=== PATIENT | female | born 1985 | race African-American/Black ===

== ENCOUNTER 2017-06-26 20:41 | Emergency (ER) | payer OTHER ==
[2017-06-26] MEDS ORDERED: HYDROcod/ACETAM 5/325 MG TABLET PO STA (22:13)
[2017-06-26] MEDS ORDERED: CETIRIZINE 10 MG TABLET PO STA (22:13)
[2017-06-26] MEDS ORDERED: predniSONE 20 MG TABLET PO STA (22:13)
--- NOTE | 2017-06-26 22:15 | ED Physician Documentation ---
PD HPI SKIN - Stated complaint Stated Complaint: HIVES/BODY ACHES - Chief complaint Chief Complaint: Wound - History obtained from History obtained from: Patient, Family - History of Present Illness Timing - onset: How many days ago (5) Timing - duration: Days (5) Timing - details: Gradual onset Pain level max: 8 Pain level now: 8 Location: Bodywide Quality / character: Itchy, Painful, Discolored (erythematous), Raised, Swelling. No: Vesicular, Crusted, Draining Improved by: Other (nothing) Worsened by (comment): COMMENT (nothing) Associated symptoms: Myalgias, Joint pain, Headache. No: Facial swelling, Dyspnea, Abd pain, N/V/D, Urinary sx Contributing factors: Exposed to soap / lotion (new laundry soap). No: Exposed to medication, Exposed to food Similar symptoms before: Has not had sx before Recently seen: Not recently seen - Additional information Additional information: has a cousin with lupus. No other autoimmune disease in the family. Review of Systems Constitutional: reports: Myalgias. 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, Other - Present Medications Home Medications: Ambulatory Orders Medication Instructions Recorded Confirmed Hydrocodone/Acetaminophen 1 - 2 each PO Q6H PRN #14 tablet 06/26/17 [Hydrocodon-Acetaminophen 5-325] Methylprednisolone [Medrol] 20 mg PO DAILY 06/26/17 06/26/17 diphenhydrAMINE [Benadryl] 1 - 2 cap PO Q6HR 06/26/17 06/26/17 predniSONE [Deltasone] 10 mg PO [id number] #42 tab 06/26/17 - Allergies Allergies/Adverse Reactions: Allergies Allergy/AdvReac Type Severity Reaction Status Date / Time No Known Drug Allergies Allergy Verified 01/19/18 21:02 - Social History Does the pt smoke?: No Smoking Status: Never smoker Does the pt drink ETOH?: Yes Does the pt have substance abuse?: No - Immunizations Immunizations are current?: Yes PD ED PE NORMAL - Vitals Vital signs reviewed: Yes - General General: Alert and oriented X 3, No acute distress, Well developed/nourished - HEENT HEENT: PERRL, Ears normal, Moist mucous membranes, Pharynx benign - Neck Neck: Supple, no meningeal sign - Cardiac Cardiac: RRR, Strong equal pulses - Respiratory Respiratory: No respiratory distress, Clear bilaterally - Abdomen Abdomen: Soft, Non tender, Non distended - Derm Derm: Warm and dry, Other (Diffuse firm raised areas body wide. These are erythematous. Evidence of itching is present. She says that they have not changed location since her initial eruption several days ago. Medrol does not seem to be changing them. They do yovani.) - Extremities Extremities: No calf tenderness / cord - Neuro Neuro: Alert and oriented X 3 - Psych Psych: Normal mood, Normal affect Results - Vitals Vitals: Vital Signs - 24 hr 06/26/17 06/26/17 20:59 23:09 Temperature 36.5 C 37.2 C Heart Rate 86 92 Respiratory 18 18 Rate Blood Pressure 145/100 H 118/81 H O2 Saturation 100 99 Oxygen O2 Source Room air PD MEDICAL DECISION MAKING - ED course Complexity details: re-evaluated patient, considered differential, d/w patient ED course: Patient is a 32-year-old female who presents to the emergency department with what appear to be urticaria-like lesions, unclear etiology. They are diffuse and body wide. They do not appear to be prominent over the lower legs however. We will increase her steroids and place her on Zyrtec as well. Given Toradol and hydrocodone here for pain with good pain relief. This appears more consistent with autoimmune disease rather than allergic reaction to me. Possible Behcet's, lupus, etc.? Will have her follow-up with her PCP for further testing. Would likely benefit from a dermatology referral as well as biopsy may be needed. Patient is well-appearing, nontoxic and is tolerating p.o. without difficulty. Patient and family counseled regarding signs and symptoms for which I believe and urgent re-evaluation would be necessary. Patient with good understanding of and agreement to plan and is comfortable going home at this time This document was made in part using voice recognition software. While efforts are made to proofread this document, sound alike and grammatical errors may occur. Departure - Departure Disposition: 01 Home, Self Care Clinical Impression: Urticaria Condition: Good Instructions: ED Urticaria Follow-Up: Jamie Sue DO [Primary Care Provider] - Within 1 week Prescriptions: Hydrocodone/Acetaminophen [Hydrocodon-Acetaminophen 5-325] 1 - 2 each PO Q6H PRN #14 tablet PRN Reason: pain predniSONE [Deltasone] 10 mg PO [id number] #42 tab Comments: Stop the methylprednisolone. You need to follow up with your doctor for further testing. This may be an indication of an autoimmune disease such as lupus. You would also likely benefit from a dermatology referral. Do not drink alcohol or drive while on narcotic pain medicine. Note that many narcotic pain relievers also contain tylenol/acetaminophen. Please ensure that your total dose of acetaminophen from all sources does not exceed 3 grams (3000mg) per day. You may constipated on this medication, take a stool softener such as "Colace" twice a day while you are on it. Also recommend a bqqi-[id number] laxative such as senna or MiraLAX any day that you do not have a bowel movement. If you received narcotic pain medication in the emergency department, do not drive or operate machinery for the next 24 hours. Discharge Date/Time: 06/26/17 23:10
[2017-06-26] MEDS ORDERED: KETOROLAC 60 MG/2 ML VIAL IM STA (22:26)
[2017-06-26 23:11] VITALS: BP 118/81
== END 2017-06-26 23:10 | disposition home or self-care (01) ==
LOC: ED 20:41
DX: L50.9 Urticaria, unspecified (principal)
CPT/HCPCS: 96372; 99283; A9270; J7512

== ENCOUNTER 2019-03-03 09:30 | Outpatient (CLI) | payer OTHER ==
[2019-03-03] MEDS ORDERED: GADOBUTROL 10 MMOL/10 ML VIAL ONE (10:43)
[2019-03-03] MEDS ORDERED: GADOBUTROL 10 MMOL/10 ML VIAL IVP ONE (10:51)
--- NOTE | 2019-03-03 11:28 | MRI Report ---
Reason: ARNOLD CHIARI SYNDROME WITHOUT SPINA BIFIDA OR HYD Procedure Date: 03/03/2019 Accession Number: [id number] / [id number] Procedure: MRI - Brain W/WO CPT Code: FULL RESULT: EXAM: MRI BRAIN WITHOUT AND WITH CONTRAST EXAM DATE: 03/03/2019 10:49 AM. CLINICAL HISTORY: History of Arnold-Chiari malformation with decompression in 2014. Increased headaches and some memory difficulty. COMPARISON: None available. TECHNIQUE: Multiplanar, multisequence T1-weighted and fluid-sensitive MR sequences of the brain were performed before and after administration of intravenous contrast. Sequences optimized for routine evaluation. Other: None. IV Contrast: 10 mL Gadavist. FINDINGS: The diffusion-weighted images are normal. There is no evidence of acute or subacute cerebral infarction. There are a few punctate nonspecific T2 hyperintensities of the subcortical white matter of the bilateral frontal lobes. These are most typical of those seen in migraine. Cerebral volume and ventricular size are normal. There are surgical changes of a suboccipital craniectomy for posterior decompression of Chiari I malformation. The tonsils are rounded in appearance rather than being peglike. The visualized portions of the cervical spinal cord are without evidence of syringohydromyelia. The pituitary and sella are normal. The corpus callosum is of normal size and configuration. The T2* sequence is normal. There is no evidence of subacute or chronic hemorrhage. There is normal enhancement within the deep venous sinuses. There is normal enhancement within the brain parenchyma. There is minimal mucosal thickening in the bilateral maxillary sinuses and ethmoid air cells. There is no obstructing pattern of sinus disease. The bilateral parotid spaces exhibit normal signal intensity. IMPRESSION: 1. There is no evidence of acute or subacute cerebral infarction. 2. There are multiple punctate nonspecific T2 hyperintensities of the bilateral subcortical white matter of the frontal lobes. These are most typical of those seen in migraine. 3. There are surgical changes of a suboccipital craniectomy for posterior decompression of Chiari I malformation. The tonsils are rounded in appearance rather than being peglike. There does not appear to be significant narrowing of the craniocervical junction. There is no evidence of syringohydromyelia within the visualized portions of the cervical spinal cord.
== END 2019-03-03 09:31 | disposition home or self-care (01) ==
LOC: DI 09:30
PROVIDERS: ATTEND Nurse Practitioner Family
DX: Q07.00 Arnold-Chiari syndrome without spina bifida or hydrocephalus (principal)
CPT/HCPCS: 70553; A9585

== ENCOUNTER 2019-11-30 19:17 | Emergency (ER) | payer OTHER ==
[2019-11-30] MEDS ORDERED: SODIUM CHLORIDE 0.9% 1,000 ML IV STA (19:50)
[2019-11-30] MEDS ORDERED: KETOROLAC 30 MG/ML VIAL IVP STA (19:50)
[2019-11-30] MEDS ORDERED: MORPHINE 2 MG/ML CARPUJECT IVP STA ×2 (19:52→22:17)
[2019-11-30 20:13] LABS: BASOPHILS % (AUTO) 0.3 %; EOSINOPHILS # (AUTO) 0.1 10^3/uL (0.0-0.7); EOSINOPHILS % (AUTO) 2.1 %; HGB - HEMOGLOBIN 13.6 g/dL (12.0-16.0); LYMPHOCYTES # (AUTO) 2.3 10^3/uL (1.5-3.5); LYMPHOCYTES % (AUTO) 40.2 %; MEAN CORPUSCULAR HEMOGLOBIN 31.3 pg (27.0-31.0); MEAN CORPUSCULAR HGB CONC 33.8 g/dL (32.0-36.0); MEAN CORPUSCULAR VOLUME 92.4 fL (81.0-99.0); MEAN PLATELET VOLUME 10.8 fL (7.9-10.8); MONOCYTES # (AUTO) 0.4 10^3/uL (0.0-1.0); MONOCYTES % (AUTO) 7.3 %; NEUTROPHILS # (AUTO) 2.9 10^3/uL (1.5-6.6); NEUTROPHILS % (AUTO) 49.9 %; PLT - PLATELET COUNT 238 10^3/uL (130-450); RED BLOOD COUNT 4.35 10^6/uL (4.20-5.40); RED CELL DISTRIBUTION WIDTH 13.3 % (12.0-15.0); WHITE BLOOD COUNT 5.8 x10^3/uL (4.8-10.8)
[2019-11-30 20:34] LABS: ALBUMIN/GLOBULIN RATIO 1.3 (1.0-2.2); ALKALINE PHOSPHATASE 58 IU/L (42-121); ALT ALANINE AMINOTRANSFERASE 12 IU/L (10-60); AST ASPARTATE AMINOTRANSFERASE 13 IU/L (10-42); BILIRUBIN,TOTAL 1.4 mg/dL (0.2-1.0); BUN - BLOOD UREA NITROGEN 10 mg/dL (6-20); CALCIUM 8.6 mg/dL (8.5-10.3); CARBON DIOXIDE - CO2 27 mmol/L (21-32); CHLORIDE 104 mmol/L (101-111); CREATININE 0.7 mg/dL (0.4-1.0); GLUCOSE 91 mg/dL (70-100); LIPASE 30 U/L (22-51); SODIUM 138 mmol/L (135-145); TOTAL PROTEIN 7.2 g/dL (6.7-8.2)
[2019-11-30 21:06] LABS: CRP - C-REACTIVE PROTEIN < 1.0 mg/dL (0-1.0); HCG,QUALITATIVE BLOOD NEGATIVE
--- NOTE | 2019-11-30 21:36 | XRAY Report ---
PROCEDURE: Chest 1 View X-Ray INDICATIONS: dyspnea TECHNIQUE: One view of the chest was acquired. COMPARISON: None FINDINGS: Surgical changes and devices: None. Lungs and pleura: No pleural effusions or pneumothorax. Lungs are clear. Mediastinum: Mediastinal contours appear normal. Heart size is normal. Bones and chest wall: No suspicious bony lesions. Overlying soft tissues appear unremarkable. IMPRESSION: No evidence acute pulmonary process. Reviewed by: Hasmukh Alegre MD on 11/30/2019 9:35 PM PDT Approved by: Hasmukh Alegre MD on 11/30/2019 9:35 PM PDT Station ID: [id number]
--- NOTE | 2019-11-30 21:36 | Ultrasound Report ---
PROCEDURE: Pelvic w/Transvag+Doppler Comp INDICATIONS: pelvic pain, R TECHNIQUE: Real-time scanning was performed of the pelvic organs, with image documentation. Additional endovagi nal scanning was necessary due to incomplete visualization of the adnexal and endometrial structures by transabdominal scanning. COMPARISON: None. FINDINGS: Transabdominal scanning: Limited scanning through the kidneys shows no hydronephrosis. No pathologi c free abdominal or pelvic fluid. Endovaginal scanning: Uterus: Uterus is normal in size at 10.2 x 5.7 x 6.2 cm. The endometrium measures 8 mm in combined thickness. An IUD is in satisfactory position. Ovaries: The right ovary measures 5.1 x 3.8 x 4.1 cm. There is a cystic right ovarian lesion measuri ng 4.5 x 3.3 x 4.1 cm, with internal echoes. This may potentially represent an endometrioma or hemorr hagic cyst. The left ovary measures 3.5 x 1.5 x 2.8 cm, and is unremarkable. There are paraovarian varicosities o n the left There is bilateral intraovarian flow. IMPRESSION: 1. Unremarkable uterus with IUD. 2. Complex cystic structure of the right ovary measuring 4.5 x 3.3 x 4.1 cm, possibly representing en dometrioma versus hemorrhagic cyst. 3. Paraovarian varicosities on the left suggests probable left gonadal vein reflux. In the appropriat e clinical setting, this can support a clinical diagnosis of pelvic venous congestion syndrome. Reviewed by: Hasmukh Alegre MD on 11/30/2019 9:34 PM PDT Approved by: Hasmukh Alegre MD on 11/30/2019 9:34 PM PDT Station ID: [id number]
[2019-11-30] MEDS ORDERED: DEXAMETHASONE 10 MG/ML VIAL IVP STA (22:17)
[2019-11-30] MEDS ORDERED: HYDROcod/ACETAM 5/325 MG TABLET PO STA (22:54)
--- NOTE | 2019-11-30 22:56 | ED Physician Documentation ---
PD HPI FEMALE - Stated complaint Stated Complaint: BAXTER,CHEST DISCOMFORT - Chief complaint Chief Complaint: General - History obtained from History obtained from: Patient - History of Present Illness Timing - onset: How many weeks ago (3) Timing - duration: Weeks (3) Timing - details: Gradual onset, Still present (much worse the past 2-3 days), Waxing and waning Associated symptoms: Pelvic pain (right lower abd/pelvic pain intermittent for 3 weeks, then noted to be across low abd and worse on right the past 2-3 days. Feeling of dyspnea and some headache as well, now the past few days.), Vaginal bleeding (mild spotting several days ago), Other (noted some breast tenderness the past couple of weeks). No: Fever, Dysuria Contributing factors: IUD, Sexually active (just her and has not noted dysparunia). 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 denies: Fever, Chills, Myalgias Nose: reports: Congestion. denies: Rhinorrhea / runny nose Throat: denies: Sore throat Cardiac: denies: Chest pain / pressure, Palpitations Respiratory: reports: Dyspnea. denies: Cough, Wheezing GI: reports: Abdominal Pain (RLQ area), Nausea. denies: Abdominal Swelling, Vomiting, Diarrhea : denies: Dysuria, Frequency, Discharge Musculoskeletal: denies: Back pain Neurologic: reports: Generalized weakness, Headache (the past few days, mild). denies: Focal weakness, Numbness PD PAST MEDICAL HISTORY - Past Medical History Past Medical History: Yes Neuro: Other (Chiari Malformation with surgery years ago, some occasional headaches since. 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[employer]: Other - Present Medications Home Medications: Ambulatory Orders Medication Instructions Recorded Confirmed Hydrocodone/Acetaminophen 1 - 2 each PO Q6H PRN #14 tablet 06/26/17 [Hydrocodon-Acetaminophen 5-325] Methylprednisolone [Medrol Dose 20 mg PO DAILY 06/26/17 06/26/17 Pack] diphenhydrAMINE [Benadryl] 1 - 2 cap PO Q6HR 06/26/17 06/26/17 predniSONE [Deltasone] 10 mg PO [id number] #42 tab 06/26/17 Albuterol Sulfate [Albuterol 2 puffs IH QID #1 hfa.aer.ad 11/30/19 Sulfate Hfa] Hydrocodone/Acetaminophen [[place] 1 each PO Q6H PRN #15 tablet 11/30/19 5-325 Tablet] Naproxen 375 mg PO BID #20 tablet 11/30/19 - Allergies Allergies/Adverse Reactions: Allergies Allergy/AdvReac Type Severity Reaction Status Date / Time No Known Drug Allergies Allergy Verified 11/30/19 19:26 - Social History Does the pt smoke?: No Smoking Status: Never smoker Does the pt drink ETOH?: Yes Does the pt have substance abuse?: No - Immunizations Immunizations are current?: Yes - POLST Patient has POLST: No PD ED PE NORMAL - Vitals Vital signs reviewed: Yes - General General: Alert and oriented X 3, Well developed/nourished - HEENT HEENT: Moist mucous membranes, Pharynx benign - Neck Neck: Supple, no meningeal sign, No adenopathy - Cardiac Cardiac: RRR, No murmur - Respiratory Respiratory: No respiratory distress, Clear bilaterally, Other (no chestwall tenderness) - Abdomen Abdomen: Normal bowel sounds, Soft, Non distended, No organomegaly, Other (tender RLQ area and suprapubic with some local guarding but no percussion nor rebound tenderness. ) - Back Back: No CVA TTP - Derm Derm: Normal color, Warm and dry - Neuro Neuro: Alert and oriented X 3, No motor deficit, Normal speech Results - Vitals Vitals: Vital Signs - 24 hr 11/30/19 11/30/19 11/30/19 19:20 19:33 21:23 Temperature 36.9 C Heart Rate 82 74 70 Respiratory 18 17 16 Rate Blood Pressure 161/113 H 149/94 H O2 Saturation 99 100 98 11/30/19 23:00 Temperature Heart Rate 74 Respiratory 14 Rate Blood Pressure 147/97 H O2 Saturation 99 Oxygen O2 Source Room air - EKG (time done) 20:03 Rate: Rate (enter#) (55) Rhythm: Sinus bradycardia [place]: Normal Intervals: Normal MS QRS: Normal Ischemia: Normal ST segments, ST elevation c/w repol. No: ST elevation c/w ischemia, ST depression - Labs Labs: Laboratory Tests 11/30/19 11/30/19 11/30/19 20:00 20:00 20:00 WBC 5.8 RBC 4.35 Hgb 13.6 Hct 40.2 MCV 92.4 MCH 31.3 H MCHC 33.8 RDW 13.3 Plt Count 238 MPV 10.8 Neut # (Auto) 2.9 Lymph # (Auto) 2.3 [place] # (Auto) 0.4 Eos # (Auto) 0.1 Baso # (Auto) 0.0 Absolute Nucleated RBC 0.00 Nucleated RBC % 0.0 Sodium 138 Potassium 3.6 Chloride 104 Carbon Dioxide 27 Anion Gap 7.0 BUN 10 Creatinine 0.7 Estimated GFR (MDRD) 118 Glucose 91 Calcium 8.6 Total Bilirubin 1.4 H AST 13 ALT 12 Alkaline Phosphatase 58 Troponin I High Sens C-Reactive Protein < 1.0 Total Protein 7.2 Albumin 4.0 Globulin 3.2 Albumin/Globulin Ratio 1.3 Lipase 30 Serum HCG, Qual NEGATIVE 11/30/19 20:00 WBC RBC Hgb Hct MCV MCH MCHC RDW Plt Count MPV Neut # (Auto) Lymph # (Auto) [place] # (Auto) Eos # (Auto) Baso # (Auto) Absolute Nucleated RBC Nucleated RBC % Sodium Potassium Chloride Carbon Dioxide Anion Gap BUN Creatinine Estimated GFR (MDRD) Glucose Calcium Total Bilirubin AST ALT Alkaline Phosphatase Troponin I High Sens < 2.3 L C-Reactive Protein Total Protein Albumin Globulin Albumin/Globulin Ratio Lipase Serum HCG, Qual - Rads (name of study) chest xray Radiology: Prelim report reviewed (no acute process), See rad report pelvic U/S Radiology: Prelim report reviewed (right ovarian complex cyst 4.5 cm c/w hemorrhagic cyst. No free fluid. ), See rad report Departure - Departure Disposition: 01 Home, Self Care Clinical Impression: Lower abdominal pain, Hemorrhagic cyst of right ovary Headache Qualifiers: Headache type: unspecified Headache chronicity pattern: acute headache Intractability: not intractable Qualified Code(s): R51 - Headache Dyspnea Qualifiers: Dyspnea type: shortness of breath Qualified Code(s): R06.02 - Shortness of breath Condition: Stable Record reviewed to determine appropriate education?: Yes Instructions: ED Dyspnea Shortness of Breath, ED Cyst Ovarian Follow-Up: LUCIANO WARD ARNP [Primary Care Provider] - Prescriptions: Albuterol Sulfate [Albuterol Sulfate Hfa] 2 puffs IH QID #1 hfa.aer.ad Naproxen 375 mg PO BID #20 tablet Hydrocodone/Acetaminophen [[place] 5-325 Tablet] 1 each PO Q6H PRN #15 tablet PRN Reason: Pain Comments: Your ultrasound shows a cyst in the right ovary which looks like a hemorrhagic cyst meaning that it bled into the cyst and likely accounts for the increased pain. There is no signs of rupturing of the cyst nor internal bleeding. I think this is accounting for your pain and we can treated with anti- inflammatories and pain medicine. 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 If this is improving well then they may just want to repeat the ultrasound in a few weeks to see if it is cleared. Your chest x-ray and blood tests are normal and not showing any obvious cause for your shortness of breath. It might be environmental and I would suggest trying an albuterol inhaler 2 puffs 3-4 times a day for the next several days to week and see if it helps. Stay well-hydrated. Tylenol if needed for mild pains. Discharge Date/Time: 11/30/19 23:26
[2019-11-30] MEDS ORDERED: HYDROcod/ACET 5/325 Prepack 4 PO STA (23:00)
[2019-11-30 23:26] VITALS: BP 147/97
== END 2019-11-30 23:26 | disposition home or self-care (01) ==
LOC: ED 19:17
DX: N83.201 Unspecified ovarian cyst, right side (principal); R06.02 Shortness of breath; R51 Headache; Z20.828 Contact with and (suspected) exposure to other viral communicable diseases
CPT/HCPCS: 36415; 71045; 76830; 76856; 80053; 81599; 83690; 84484; 84703; 85025; 86140; 93005; 93975; 99284